=== PATIENT | female | born 1980 | race Caucasian/White ===

== ENCOUNTER 2020-06-06 17:45 | Emergency (ER) | payer OTHER ==
[~2020-06-06] VITALS: Ht 157.5 cm; Wt 96.2 kg
[~2020-06-06 17:45] MED LIST: IBUP-2213 PO; TRAM50TA1 PO
[2020-06-06 17:49] VITALS: BP 127/91
--- NOTE | 2020-06-06 18:26 | NUR ---
Ambulated to bed 6
[2020-06-06] MEDS ORDERED: KETOROLAC 60 MG/2 ML VIAL IM ONE (18:45)
--- NOTE | 2020-06-06 18:50 | NUR ---
40 Y/O FEMALE COMES FROM HOME PRESENTS TO ED C/O GENERALIZED ABD PAIN X 2-3 HOURS, WORSENING, WITH RADIATION TO THE BACK. PT HAD EGD WITH BIOPSY THIS MORNING FOR GERD. STATES NAUSEA WITHOUT VOMITING. DENIES FEVER, DIARRHEA. ABDOMEN SOFT. TENDER. NON DISTENDED, PT GUARDING ABD. STATES PAIN 10/10 SHARP/CONSTANT. PT STATATES SHE TOOK TRAMADOL W/O RELIEF 1HR AGO. DR. TRUJILLO AWARE OF PT STATUS. PT POSITIONED FOR COMFORT BED LOCKED AND IN LOWEST POSITION. HX- GERD, GALLSTONES NKA
--- NOTE | 2020-06-06 18:53 | NUR ---
DR. ONEIL IS EVALUATING PT AT BEDSIDE.
[2020-06-06] MEDS ORDERED: ONDANSETRON 4 MG/2 ML VIAL ONE (18:57)
[2020-06-06] MEDS ORDERED: MORPHINE SULFATE 4 MG/ML SYR IVP STA (19:11)
[2020-06-06] MEDS ORDERED: ONDANSETRON 4 MG/2 ML VIAL IVP ONE (19:15)
--- NOTE | 2020-06-06 19:15 | NUR ---
PT STABLE AT THIS TIME. REPORT GIVEN TO ARYA MALDONADO FOR CONTINUITY OF CARE.
[2020-06-06 19:45] LABS: BASOPHILS # (AUTO) 0.1 K/uL (0.00-0.22); BASOPHILS % (AUTO) 0.5 % (0.0-2.0); EOSINOPHILS # (AUTO) 0.1 K/uL (0-0.4); EOSINOPHILS % (AUTO) 0.7 % (0.0-4.0); HEMATOCRIT 37.4 % (36-48); HEMOGLOBIN 12.4 g/dL (12.0-16.0); LYMPHOCYTES # (AUTO) 1.5 K/uL (2.5-16.5); LYMPHOCYTES % (AUTO) 13.3 % (20.5-51.1); MEAN CORPUSCULAR HEMOGLOBIN 29 pg (27-31); MEAN CORPUSCULAR HGB CONC 33 g/dL (33-37); MEAN CORPUSCULAR VOLUME 86.2 fL (80-94); MONOCYTES # (AUTO) 0.7 K/uL (0.8-1.0); MONOCYTES % (AUTO) 5.9 % (1.7-9.3); NEUTROPHILS # (AUTO) 8.8 K/uL (1.8-7.7); NEUTROPHILS % (AUTO) 79.6 % (42.2-75.2); PLATELET COUNT (AUTO) 230 K/uL (140-450); RED BLOOD CELL COUNT(AUTO) 4.34 MIL/uL (4.20-5.40); WHITE BLOOD COUNT (AUTO) 11.1 K/uL (4.8-10.8)
[2020-06-06 20:02] LABS: ALBUMIN 3.5 g/dL (3.4-5.0); CARBON DIOXIDE 26.3 mmol/L (21-32); CREATININE 0.7 mg/dL (0.6-1.3); MAGNESIUM 1.7 mg/dL (1.8-2.4); POTASSIUM 3.3 mmol/L (3.5-5.1); TOTAL BILIRUBIN 0.3 mg/dL (0.0-1.0)
[2020-06-06 20:08] LABS: PROTHROMBIN TIME 9.9 secs (10.8-13.4)
--- NOTE | 2020-06-06 20:30 | NUR ---
GAVE UPDATE ON PT STATUS. I WILL CONTINUE TO UPDATE PERIODICALLY.
--- NOTE | 2020-06-06 21:07 | NUR ---
PT APPEARS TO BE SLEEPING. VSS, R/R EQUAL, AND UNLABORED, SIDE RAIL X1, BED IN LOW POSITION, WILL CONTINUE TO MONITOR.
--- NOTE | 2020-06-06 21:25 | NUR ---
Patient discharged with v/s stable. Written and verbal after care instructions given and explained. Patient alert, oriented and verbalized understanding of instructions. Ambulatory with steady gait. All questions addressed prior to discharge. ID band removed. Patient advised to follow up with PMD. Rx of NORCO AND ZOFRAN given. Patient educated on indication of medication including possible reaction and side effects. Opportunity to ask questions provided and answered.
== END 2020-06-06 21:25 | disposition home or self-care (01) ==
LOC: MED 17:45
DX: R10.11 Right upper quadrant pain (principal); K80.80 Other cholelithiasis without obstruction
CPT/HCPCS: 36415; 74018; 76705; 80053; 81002; 81025; 83690; 83735; 85025; 85610; 86886; 86900; 86901; 96372; 96374; 96375; 99285; J1885; J2270; J2405